=== PATIENT | male | born 1985 | race Caucasian/White ===

== ENCOUNTER 2018-09-20 21:35 | Emergency (ER) | payer MEDICAID, OTHER ==
[~2018-09-20] VITALS: Ht 177.8 cm; Wt 72.7 kg
[~2018-09-20 21:35] MED LIST: FLO0.4C PO; RIFA300C4 PO
[2018-09-20 22:23] VITALS: BP 143/95
[2018-09-21] MEDS ORDERED: MUPI22OI30 TOP (03:15)
[2018-09-21] MEDS ORDERED: CEPH500C5 PO (03:15)
[2018-09-21] MEDS ORDERED: ibuprofen tablet 400 MG TABLET PO ONE (03:15)
[2018-09-21] MEDS ORDERED: cephalexin 500mg capsule PO ONE (03:15)
== END 2018-09-21 03:29 | disposition home or self-care (01) ==
LOC: ER 21:36
DX: L03.211 Cellulitis of face (principal); F11.90 Opioid use, unspecified, uncomplicated; Z87.442 Personal history of urinary calculi; Z98.890 Other specified postprocedural states; Z88.5 Allergy status to narcotic agent; Z88.0 Allergy status to penicillin; Z79.899 Other long term (current) drug therapy
CPT/HCPCS: 99283